=== PATIENT | female | born 1930 | race Caucasian/White ===

== ENCOUNTER → 2016-11-22 03:00 | Outpatient (CLI) | payer MEDICARE, BC | END | disposition home or self-care (01) | LOC: D.MAMMO 03:00 | DX: Z12.31 Encounter for screening mammogram for malignant neoplasm of breast (principal) ==

== ENCOUNTER 2019-04-13 14:51 | Emergency (ER) | payer MEDICARE, BC ==
[~2019-04-13] VITALS: Ht 154.9 cm; Wt 65.9 kg
[2019-04-13 15:03] VITALS: Ht 154.9 cm; Wt 65.9 kg
[2019-04-13] MEDS ORDERED: BAYER CHEWABLE81 MG PO (15:07)
[2019-04-13] MEDS ORDERED: SYNTHROID50 MCG PO (15:07)
[2019-04-13] MEDS ORDERED: TREXALL5 MG PO (15:07)
[2019-04-13] MEDS ORDERED: LEUCOVORIN CALCI5 MG PO (15:08)
[2019-04-13] MEDS ORDERED: VITAMIN D31000 UNI2 PO (15:08)
[2019-04-13 15:36] LABS: BASOPHILS 0.2 % (0-2); HEMATOCRIT 41.5 % (36.0-48.0); HEMOGLOBIN 13.8 g/dL (12-16); IMMATURE GRANULOCYTES 0.3 % (0-5); LYMPHOCYTES 14.9 % (15-50); MCH 34.3 pg (26.0-34.0); MCHC 33.3 g/dL (31.0-37.0); MCV 103.2 fL (80.0-100.0); MEAN PLATELET VOLUME 10.1 fL (7.4-10.4); MONOCYTES 12.9 % (2-11); NEUTROPHILS 70.7 % (40-80); PLATELET COUNT 248 10x3/uL (130-400); RBC 4.02 10x6/uL (4.00-5.40); RDW 13.6 % (11.5-14.5); WBC 12.5 10x3/uL (4.8-10.8)
[2019-04-13 16:13] LABS: ALBUMIN 3.5 g/dL (3.4-5.0); ALKALINE PHOSPHATASE 130 U/L (46-116); ALT (SGPT) 19 U/L (10-68); BILIRUBIN - TOTAL 0.52 mg/dL (0.2-1.3); CALC OSMOLALITY 278 mosm/kg (275-300); CALCIUM 8.6 mg/dL (8.5-10.1); CARBON DIOXIDE 23.8 mmol/L (21.0-32.0); CHLORIDE - SERUM 102 mmol/L (98-107); CREATININE - SERUM 1.1 mg/dL (0.6-1.3); GLUCOSE 102 mg/dL (74-106); POTASSIUM - SERUM 4.3 mmol/L (3.5-5.1); PROTEIN - SERUM 8.3 g/dL (6.4-8.2); SODIUM 138 mmol/L (136-145); UREA NITROGEN 20 mg/dL (7-18); eGFR NON AFRICAN AMERICAN 50 mL/min (90-120)
[2019-04-13 16:24] LABS: CKMB 3.2 U/L (0.0-3.6); CREATINE KINASE 64 UL (21-215); PRO BNP 389 pg/mL (0-450)
[2019-04-13 16:25] LABS: TROPONIN-I < 0.017 ng/mL (0.000-0.060)
[2019-04-13] MEDS ORDERED: ULTRAM50 MG PO (18:35)
[2019-04-13 19:10] VITALS: BP 138/53
== END 2019-04-13 19:10 | disposition home or self-care (01) ==
LOC: D.ER 14:51
PROVIDERS: Emergency Medicine
DX: R07.89 Other chest pain (principal)